=== PATIENT | female | born 1975 | race Caucasian/White ===

== ENCOUNTER 2017-10-14 12:56 | Emergency (ER) | payer SELFPAY ==
[~2017-10-14] VITALS: Ht 165.1 cm; Wt 88.6 kg
[~2017-10-14 12:56] MED LIST: TESSALON P100 MG/CAP PO; ZITHROMAX Z PA250 MG PO
[2017-10-14 13:01] VITALS: BP 134/64; PULSE 98; TEMP 98.2
[2017-10-14] MEDS ORDERED: CLEOCIN HCL300 MG PO ×2 (13:07)
== END 2017-10-14 13:55 | disposition home or self-care (01) ==
LOC: COL.ER 12:56
DX: B07.0 Plantar wart (principal)

== ENCOUNTER 2018-03-10 11:22 | Emergency (ER) | payer SELFPAY ==
[~2018-03-10] VITALS: Ht 165.1 cm; Wt 90.9 kg
[~2018-03-10 11:22] MED LIST changes: +CLEOCIN HCL300 MG PO
[2018-03-10 11:25] VITALS: BP 157/78
[2018-03-10 12:54] VITALS: PULSE 73; TEMP 98.6
== END 2018-03-10 12:55 | disposition home or self-care (01) ==
LOC: COL.ER 11:22
DX: J10.1 Influenza due to other identified influenza virus with other respiratory manifestations (principal); Z90.710 Acquired absence of both cervix and uterus; Z98.890 Other specified postprocedural states; F17.210 Nicotine dependence, cigarettes, uncomplicated
CPT/HCPCS: J1885

== ENCOUNTER → 2018-08-02 | Outpatient (CLI) | payer SELFPAY ==
[2018-08-02 20:01] LABS: HEMOGLOBIN 11.2 g/dl (12.5-16.0); MEAN CELL VOLUME 68 fl (80.0-100.0); MEAN CORPUSCULAR HEMOGLOBIN 21 pg (27.0-31.0); MEAN CORPUSCULAR HGB CONC 31 g/dl (33.0-37.0); MEAN PLATELET VOLUME 10.7 fl (7.4-10.4); PLATELET COUNT 435 K/mm3 (130-400); RED BLOOD COUNT 5.35 M/mm3 (4.10-5.30); REDCELL DISTRIBUTION WIDTH-CV 19.5 % (11.5-14.5)
[2018-08-02 20:08] LABS: HEMATOCRIT 36.6 % (37.0-47.0)
[2018-08-02 20:15] LABS: ALBUMIN 4.3 gm/dL (3.5-5.0); BILIRUBIN,TOTAL 0.3 mg/dL (0.0-1.0); CALCIUM 9.9 mg/dL (8.4-10.2); CREATININE, serum 0.77 (0.52-1.25); POTASSIUM 4.5 mmol/L (3.4-5.0); TOTAL PROTEIN 7.2 gm/dL (6.4-8.2)
[2018-08-02 20:45] LABS: THYROID STIMULATING HORMONE 4.05 uIU/mL (0.465-4.680)
== END ==
LOC: ZLAB.FHCC 17:22
PROVIDERS: Physician Assistant
DX: Z01.89 Encounter for other specified special examinations (principal)

== ENCOUNTER 2018-09-10 05:34 | Day surgery (SDC) | payer OTHER ==
[~2018-09-10] VITALS: Ht 165.1 cm; Wt 112.5 kg
[2018-09-10 06:08] VITALS: BP 141/78; PULSE 73; TEMP 98.3
[2018-09-10] MEDS ORDERED: HCTZ 25MG TAB25 MG PO (06:15)
[2018-09-10] MEDS ORDERED: MULTI VITAMINS1 TAB PO (06:15)
[2018-09-10] MEDS ORDERED: ADVIL200 MG PO (06:16)
--- NOTE | 2018-09-10 06:17 | NUR ---
TO RM AT 0542- CALL LIGHT IN REACH BOYFRIEND AND HIS MOTHER AT BEDSIDE.
[2018-09-10 08:30] VITALS: BP 120/73; PULSE 67; TEMP 98.2
--- NOTE | 2018-09-10 08:30 | NUR ---
TO RM 8 PER CART FROM [facility]... ALERT ORIENTED X3, TALKING TO STAFF AND BOYFRIEND. DRESSING OVER LEFT HAND CLEAN DRY INTACT. DENIES PAIN OR DISCOMFORT DENIES NAUSEA /OR VOMITING. ELEVATED ON PILLOW. RECEIVED WATER.
[2018-09-10 08:45] VITALS: BP 131/75; PULSE 65
--- NOTE | 2018-09-10 08:45 | NUR ---
ABLE TO MOVE ALL FINGERS. RECEIVED MUFFIN, COFFEE AND 2ND WATER.
[2018-09-10 09:00] VITALS: BP 119/73; PULSE 78
--- NOTE | 2018-09-10 09:00 | NUR ---
ATE 100% AND TOLERATED WELL. RECEIVED 2ND CUP OF COFFEE AND 3RD CUP OF WATER
[2018-09-10 09:15] VITALS: BP 121/65; PULSE 78
[2018-09-10] MEDS ORDERED: TYLENOL W/COD1 UDTAB PO (09:17)
--- NOTE | 2018-09-10 09:30 | NUR ---
AMBULATED TO BATHROOM WITH ASSIST. VOIDED AND TOLERATED WELL.
--- NOTE | 2018-09-10 09:45 | NUR ---
RECEIVED DISCHARGE INSTRUCTIONS AND VERBALIZED UNDERSTANDING. DISCONTINUED IV AND INT- CATHETER INTACT ASSISTED DRESSED.
--- NOTE | 2018-09-10 10:00 | NUR ---
DISCHARGED PER WC BY NURSING STAFF TO PRIVATE CAR IN CARE OF BOYFRIEND AND HIS MOTHER.
== END 2018-09-10 10:14 | disposition home or self-care (01) ==
LOC: SDCO 05:34
DX: D48.1 Neoplasm of uncertain behavior of connective and other soft tissue (principal); I10 Essential (primary) hypertension; F17.210 Nicotine dependence, cigarettes, uncomplicated; Z79.899 Other long term (current) drug therapy; Z83.3 Family history of diabetes mellitus; Z82.49 Family history of ischemic heart disease and other diseases of the circulatory system
CPT/HCPCS: J0690; J2704; J3010; J7120

== ENCOUNTER 2019-03-16 07:58 | Emergency (ER) | payer SELFPAY ==
[~2019-03-16] VITALS: Ht 165.1 cm; Wt 104.5 kg
[~2019-03-16 07:58] MED LIST changes: +ADVIL200 MG PO; +HCTZ 25MG TAB25 MG PO; +MULTI VITAMINS1 TAB PO; +TYLENOL W/COD1 UDTAB PO
[2019-03-16 08:02] VITALS: BP 165/84; TEMP 97.9
[2019-03-16 09:00] VITALS: PULSE 73
== END 2019-03-16 09:00 | disposition home or self-care (01) ==
LOC: COL.ER 07:58
DX: J06.9 Acute upper respiratory infection, unspecified (principal); B34.9 Viral infection, unspecified; I10 Essential (primary) hypertension; Z88.0 Allergy status to penicillin; Z88.6 Allergy status to analgesic agent; F17.210 Nicotine dependence, cigarettes, uncomplicated

== ENCOUNTER → 2020-03-05 | Outpatient (CLI) | payer OTHER | LOC: MC.RAD 12:41 | DX: Z12.31 Encounter for screening mammogram for malignant neoplasm of breast (principal) ==

== ENCOUNTER → 2020-05-22 | Outpatient (CLI) | payer OTHER | LOC: COL.RAD 13:10 | DX: R93.89 Abnormal findings on diagnostic imaging of other specified body structures (principal) ==

== ENCOUNTER 2020-09-07 10:51 | Emergency (ER) | payer OTHER ==
[~2020-09-07] VITALS: Ht 165.1 cm; Wt 90.9 kg
[2020-09-07 11:42] VITALS: TEMP 98
[2020-09-07 14:55] VITALS: BP 131/90; PULSE 71
== END 2020-09-07 14:56 | disposition home or self-care (01) ==
LOC: COL.ER 10:51
DX: S83.92XA Sprain of unspecified site of left knee, initial encounter (principal); F17.210 Nicotine dependence, cigarettes, uncomplicated; X58.XXXA Exposure to other specified factors, initial encounter

== ENCOUNTER 2020-12-21 11:54 | Emergency (ER) | payer OTHER ==
[~2020-12-21] VITALS: Ht 165.1 cm; Wt 90.9 kg
[2020-12-21 12:16] VITALS: TEMP 97.1
[2020-12-21 12:56] VITALS: BP 141/91; PULSE 62
== END 2020-12-21 13:00 | disposition home or self-care (01) ==
LOC: COL.ER 11:54
DX: B34.9 Viral infection, unspecified (principal); I10 Essential (primary) hypertension; Z20.822 Contact with and (suspected) exposure to COVID-19; Z79.899 Other long term (current) drug therapy

== ENCOUNTER 2023-03-31 04:51 | Emergency (ER) | payer SELFPAY ==
[~2023-03-31] VITALS: Ht 165.1 cm; Wt 90.9 kg
[~2023-03-31 04:51] MED LIST changes: +FLEXERIL 1010 MG/TAB PO
[2023-03-31] MEDS ORDERED: predniSONE 50 MG TAB PO ONE (05:45)
[2023-03-31] MEDS ORDERED: Albuterol/Ipratropium 3 MG-0.5 MG/3 ML Neb Soln IH ONE (05:45)
[2023-03-31] MEDS ORDERED: PREDNISONE10 MG PO (05:53)
[2023-03-31] MEDS ORDERED: VENTOLIN0.09 MG IH (05:53)
[2023-03-31] MEDS ORDERED: ZITHROMAX Z PA250 MG PO (05:53)
[2023-03-31] MEDS ORDERED: Azithromycin 250 MG TAB PO ONE (06:00)
[2023-03-31 06:19] VITALS: BP 138/85; PULSE 80; TEMP 97.4
== END 2023-03-31 06:19 | disposition home or self-care (01) ==
LOC: COL.ER 04:51
DX: J98.01 Acute bronchospasm (principal); J01.90 Acute sinusitis, unspecified; J44.1 Chronic obstructive pulmonary disease with (acute) exacerbation; F17.210 Nicotine dependence, cigarettes, uncomplicated; E66.01 Morbid (severe) obesity due to excess calories; Z68.33 Body mass index [BMI] 33.0-33.9, adult; Z88.0 Allergy status to penicillin
CPT/HCPCS: J7512